=== PATIENT | male | born 1980 | race Caucasian/White ===

== ENCOUNTER 2019-09-01 15:30 | Emergency (ER) | payer OTHER ==
[2019-09-01 15:50] VITALS: BP 144/84; PULSE 60; RESP 18; TEMP 98
[2019-09-01] MEDS ORDERED: KETOROLAC 30 MG/ML 1 ML VIAL IM STA (16:59)
[2019-09-01] MEDS ORDERED: ACET/COD 300 MG/30 MG STARTER PACK 6 TAB BTL PO STA (17:00)
--- NOTE | 2019-09-01 17:19 | ED ---
Extremity Problem HPI - General Chief complaint: Extremity Problem,Nontraumatic Stated complaint: R shoulder pain Time Seen by Provider: 09/01/19 16:21 Source: patient, RN notes reviewed, old records reviewed Mode of arrival: ambulatory - History of Present Illness Initial comments: Xavier is a 38-year-old male presents returned today with complaints of right shoulder pain for the past week. Patient reportedly has had x-rays in urgent care after he developed this pain over the past 2 weeks. He reports pain is worse at night and especially worse with frequent overhead movements. Patient states that he has had no significant changes and no subcu any arm. 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 He does have an upcoming appointment with orthopedic on Wednesday but his pain has been tolerable at home especially at night. - Related Data Previous Rx's Medication Instructions Recorded traMADol HCL [Ultram] 50 mg PO Q6HR PRN 3 Days #12 tab 09/01/19 Allergies Allergy/AdvReac Type Severity Reaction Status Date / Time Penicillins AdvReac Rash/Hives Verified 09/01/19 15:50 Review of Systems ROS Statement: Those systems with pertinent positive or pertinent negative responses have been documented in the HPI. ROS Other: All systems not noted in ROS Statement are negative. Past Medical History Past Medical History: No Reported History History of Any Multi-Drug Resistant Organisms: None Reported Additional Past Surgical History / Comment(s): ACL Right knee repair Past Psychological History: No Psychological Hx Reported Smoking Status: Never smoker Past Alcohol Use History: None Reported Past Drug Use History: None Reported General Exam - General Exam Comments Initial Comments: 38-year-old male presents emergency Department today. Patient is alert and oriented 3. Appears in no distress. Head exam: Present: atraumatic, normocephalic, normal inspection Eye exam: Present: normal appearance, PERRL, EOMI. Absent: scleral icterus, conjunctival injection, periorbital swelling ENT exam: Present: normal exam, mucous membranes moist Neck exam: Present: normal inspection. Absent: tenderness, meningismus, lymphadenopathy Respiratory exam: Present: normal lung sounds bilaterally. Absent: respiratory distress, wheezes, rales, rhonchi, stridor Cardiovascular Exam: Present: regular rate, normal rhythm, normal heart sounds. Absent: systolic murmur, diastolic murmur, rubs, gallop, clicks GI/Abdominal exam: Present: soft, normal bowel sounds. Absent: distended, tenderness, guarding, rebound, rigid Extremities exam: Present: normal inspection, full ROM, normal capillary refill. Absent: tenderness, pedal edema, joint swelling, calf tenderness Right Shoulder Exam: Present: normal inspection, full ROM ( has pain with range of motion above the head and abduction greater than 120. Patient has some tenderness over the anterior shoulder and over the supraspinatus muscle.) Upper Arm exam: Present: normal inspection, full ROM Elbow exam: Present: normal inspection, full ROM Forearm Wrist exam: Present: normal inspection, full ROM Hand Wrist exam: Present: normal inspection, full ROM Back exam: Present: normal inspection Neurological exam: Present: alert, oriented X3, CN II-XII intact Psychiatric exam: Present: normal affect, normal mood Skin exam: Present: warm, dry, intact, normal color. Absent: rash Course Vital Signs 09/01/19 15:45 Temperature 98.0 F Pulse Rate 60 Respiratory 18 Rate Blood Pressure 144/84 O2 Sat by Pulse 100 Oximetry Medical Decision Making - Medical Decision Making Patient is a 38-year-old male presents emergency department today with worsening right shoulder pain, with generalized weakness of right shoulder and unable to do full range of motion about the head without pain. 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 Discusses likely related to chronic rotator cuff tear. Patient did have x-rays completed urgent care last week. Discussed that no fractures. This time. However Patient can be given IM pain medication. Discussed the Patient needs to continue range of motion as he does not want to develop frozen shoulder syndrome. Discussed no sling at this time. Patient will be discharged at this time with close follow-up with primary care doctor. All questions answered return parameters were discussed. He does have an upcoming appointment with orthopedic on September 10. Disposition Clinical Impression: Injury of right rotator cuff Disposition: HOME SELF-CARE Condition: Good Instructions (If sedation given, give patient instructions): Rotator Cuff Injury (ED) Additional Instructions: Patient advised to continue some slow range of motion of that shoulder. Patient can ice the shoulder and elbow pain. Follow-up with orthopedic. Taking the prescribed pain medication and continuing anti-inflammatory medication until following up with orthopedic. Prescriptions: traMADol HCL [Ultram] 50 mg PO Q6HR PRN 3 Days #12 tab PRN Reason: Pain Is patient prescribed a controlled substance at d/c from ED?: Yes Referrals: None,Stated [Primary Care Provider] - 1-2 days Time of Disposition: 17:17
== END 2019-09-01 17:42 | disposition home or self-care (01) ==
LOC: EC 15:30
DX: S46.001A Unspecified injury of muscle(s) and tendon(s) of the rotator cuff of right shoulder, initial encounter (principal); Z88.0 Allergy status to penicillin; X58.XXXA Exposure to other specified factors, initial encounter
CPT/HCPCS: 96372; 99283